=== PATIENT | male | born 1960 | race Caucasian/White ===

== ENCOUNTER 2017-10-21 18:17 | Emergency (ER) | payer MEDICAID ==
[2017-10-21 18:35] VITALS: TEMP 97.5
--- NOTE | 2017-10-21 20:01 | EDPHY ---
H & P Time Seen by Provider: 10/21/17 19:30 HPI/ROS: CHIEF COMPLAINT: Aura of seizure HISTORY OF PRESENT ILLNESS: 57-year-old male with alcoholism presents with an aura of seizure. Just prior to arrival, he felt like he might have a seizure. Currently, he feels better and the aura of seizure has resolved. He has been drinking heavily today. He has a history of alcohol withdrawal seizures and has had multiple seizures in the past. He has had a recent URI and has a lingering cough. He denies fever. No chest pain, vomiting, abdominal pain, diarrhea, or other associated symptoms. REVIEW OF SYSTEMS: A 10 point review of systems was performed and is negative with the exception of the elements mentioned in the history of present illness. Past Medical/Surgical History: History of DVT/PE Palpitations ETOH abuse with withdrawal seizures Social History: Homeless. staying in assisted living in [place], so he is here to visit her. Current daily smoker. Heavy alcohol use. Smoking Status: Current every day smoker Physical Exam: General Appearance: Alert, pleasant, speech is normal and not slurred Eyes: Pupils equal and round, no conjunctival pallor or injection ENT, Mouth: Mucous membranes moist Neck: Normal inspection Respiratory: Normal respiratory rate, few end-expiratory wheezes Cardiovascular: Regular rate and rhythm Gastrointestinal: Abdomen is soft and non-tender Neurological: A&O, nonfocal exam, no tremor Skin: Warm and dry, no rash Extremities: Nontender, no pedal edema Psychiatric: Mood and affect normal Constitutional: Initial Vital Signs Temperature (C) 36.4 C 10/21/17 18:32 Heart Rate 92 10/21/17 18:32 Respiratory Rate 15 10/21/17 18:32 Blood Pressure 136/84 H 10/21/17 18:32 O2 Sat (%) 97 10/21/17 18:32 O2 Delivery Mode Room Air Allergies/Adverse Reactions: No Known Allergies Allergy (Unverified 10/07/14 08:44) Home Medications: Medication Instructions Recorded NK [No Known Home Meds] 10/21/17 Medical Decision Making ED Course/Re-evaluation: 57 y/o male with history of alcohol withdrawal seizures presents with a sensation of imminent seizure, now resolved, and a productive cough. Plan to administer 1mg PO Ativan and DuoNeb treatment for symptom relief. There is no evidence of pneumonia on exam or by history, so chest x-ray was not ordered. He would like to go to the [facility]. Patient feels better. Plan to d/c to [facility] in good condition with Librium and Albuterol inhaler. Follow up and return precautions discussed. He is comfortable with this plan. - Data Points Medications Given: Discontinued Medications Albuterol Sulfate (Proventil Inh Prepack) 1 mdi TAKEHOME EDNOW ONE Stop: 10/21/17 20:04 Last Admin: 10/21/17 20:11 Dose: 1 mdi Albuterol/Ipratropium (Duoneb) 3 ml IH EDNOW ONE Stop: 10/21/17 20:03 Last Admin: 10/21/17 20:12 Dose: 3 ml Chlordiazepoxide (Librium 25 Mg Prepack#6) 1 btl TAKEHOME EDNOW ONE Stop: 10/21/17 20:04 Last Admin: 10/21/17 20:10 Dose: 1 btl Lorazepam (Ativan) 1 mg PO EDNOW ONE Stop: 10/21/17 20:04 Last Admin: 10/21/17 20:10 Dose: 1 mg Departure - Departure Disposition: Home, Routine, Self-Care Clinical Impression: Bronchospasm with bronchitis, acute Alcohol intoxication Qualifiers: Complication of substance-induced condition: uncomplicated Qualified Code(s): F10.920 - Alcohol use, unspecified with intoxication, uncomplicated Condition: Good Instructions: Chlordiazepoxide (By mouth), Albuterol (By breathing), Alcohol Intoxication (ED), Bronchospasm (ED) Additional Instructions: 1. Use Librium 1 tablet every 6 hours as needed for alcohol withdrawal. 2. Use your Albuterol inhaler as prescribed 2 puffs three times per day as needed for shortness of breath. 3. Return to the emergency department for fever, chest pain, worsening shortness of breath, seizures, or other worsening of condition. 4. Follow up with a primary care provider for further evaluation. Referrals: [facility] Detox 24 Hours [Outside] - As per Instructions [facility],. [Clinic] - As per Instructions Report Scribed for: Rhonda Bustillo Report Scribed by: Valencia Mata Date of Report: 10/21/17 Time of Report: 20:01 Physician Review and Approval Statement: 10/21/17 20:01 Portions of this note were transcribed by a dental assistant medical assistant. I personally performed a history, physical exam, medical decision making, and confirmed accuracy of information the transcribed note.
[2017-10-21] MEDS ORDERED: IPRATROPIUM/ALBUTEROL 3 ML DEYVIAL IH ONE (20:02)
[2017-10-21] MEDS ORDERED: LORazepam 1 MG TAB PO ONE (20:03)
[2017-10-21] MEDS ORDERED: CHLORDIAZEPOXIDE 25MG PREPK#6 BTL TAKEHOME ONE (20:03)
[2017-10-21] MEDS ORDERED: ALBUTEROL INH PREPACK MDI TAKEHOME ONE (20:03)
[2017-10-21 20:40] VITALS: BP 109/66; PULSE 94; RESP 18; O2SAT 95
== END 2017-10-21 20:44 | disposition home or self-care (01) ==
LOC: EDUNIT#
DX: J20.9 Acute bronchitis, unspecified (principal); F10.920 Alcohol use, unspecified with intoxication, uncomplicated; F17.200 Nicotine dependence, unspecified, uncomplicated

== ENCOUNTER 2017-11-21 15:13 | Emergency (ER) | payer MEDICAID ==
--- NOTE | 2017-11-21 15:22 | EDPHY ---
H & P Time Seen by Provider: 11/21/17 15:21 HPI/ROS: CHIEF COMPLAINT: Shortness of breath HISTORY OF PRESENT ILLNESS: This patient is a homeless 57 y/o male with history of COPD complaining of shortness of breath. He has run out of his albuterol inhaler. He is a current smoker. He currently feels mildly short of breath. Additionally, he has a pruritic rash over his body which has been ongoing for several months. The rash began after he slept in wood chips one night. He has been evaluated twice in the past for this, and tried to treat it with a topical cream without relief. He had not noted any bugs on his skin or in his clothing or bedding. He denies fever, chest pain, vomiting, diarrhea, urinary complaints or other associated symptoms. REVIEW OF SYSTEMS: A 10 point review of systems was performed and is negative with the exception of the elements mentioned in the history of present illness. Past Medical/Surgical History: COPD. History of DVT and PE. Palpitations. History of ETOH abuse with withdrawal seizures. Social History: Current daily smoker. Homeless. Stays in [place]. Smoking Status: Current every day smoker Physical Exam: General Appearance: Alert, pleasant Eyes: Pupils equal and round, no conjunctival pallor or injection ENT, Mouth: Mucous membranes moist Neck: Normal inspection Respiratory: Lungs are clear to auscultation. No wheezing. Cardiovascular: Regular rate and rhythm Gastrointestinal: Abdomen is soft and non-tender Neurological: A&O, nonfocal exam Skin: Numerous excoriations on skin over any areas within reach of his hands. No rash. Warm and dry. Extremities: Nontender, no pedal edema Psychiatric: Mood and affect normal Constitutional: Initial Vital Signs Temperature (C) 36.6 C 11/21/17 15:39 Heart Rate 95 11/21/17 15:39 Respiratory Rate 18 11/21/17 15:39 Blood Pressure 95/61 L 11/21/17 15:39 O2 Sat (%) 93 11/21/17 15:39 O2 Delivery Mode Room Air Allergies/Adverse Reactions: No Known Allergies Allergy (Unverified 10/07/14 08:44) Home Medications: Medication Instructions Recorded diphenhydrAMINE [Benadryl 25 MG 25 mg PO TID PRN #20 tab 11/21/17 (*)] predniSONE 1 tab PO DAILY #15 tab 11/21/17 Medical Decision Making ED Course/Re-evaluation: 57 y/o male presents with shortness of breath and generalized pruritus. On exam , I note no rash but there are numerous excoriations across his back and extremities from scratching. Lungs are clear to auscultation, no wheezing. Given diffuse pruritus, without a rash, I will look for underlying causes for pruritis, such as hypercalcemia or hyperbilirubinemia. I discussed washing all of his clothes and bedding to remove or reduce the amount of any irritant that may be present. Recommended [facility] for medication refills for albuterol and Benadryl. He states he is aware of this option, but that "it's a long walk from where I stay". Plan for consult with protective services social worker. Plan for laboratory studies including CBC, chemistries, liver panel as the patient has no obvious external cause for his itching. Lungs are clear to auscultation and oxygen saturation is normal. No evidence of COPD exacerbation. I will give him a prescription for an albuterol inhaler. Laboratory studies reviewed and are relatively normal. Plan to discharge home in good condition with prescription for Albuterol, Benadryl, and Prednisone. Follow up and return precautions discussed. He is comfortable with this plan. Differential Diagnosis: Differential diagnosis includes does not limited to scabies, bedbugs, urticaria , anaphylaxis, cellulitis - Data Points Laboratory Results: Laboratory Results 11/21/17 16:05 11/21/17 16:05 11/21/17 11/21/17 16:05 16:05 WBC 6.99 10^3/uL 10^3/uL (3.80-9.50) RBC 3.37 10^6/uL L 10^6/uL (4.40-6.38) Hgb 11.8 g/dL L g/dL (13.7-17.5) Hct 34.7 % L % (40.0-51.0) MCV 103.0 fL H fL (81.5-99.8) MCH 35.0 pg H pg (27.9-34.1) MCHC 34.0 g/dL g/dL (32.4-36.7) RDW 12.0 % % (11.5-15.2) Plt Count 97 10^3/uL L 10^3/uL (150-400) MPV 9.4 fL fL (8.7-11.7) Neut % (Auto) 65.5 % % (39.3-74.2) Lymph % (Auto) 18.0 % % (15.0-45.0) [place] % (Auto) 7.0 % % (4.5-13.0) Eos % (Auto) 8.4 % H % (0.6-7.6) Baso % (Auto) 0.7 % % (0.3-1.7) Nucleat RBC Rel Count 0.0 % % (0.0-0.2) Absolute Neuts (auto) 4.57 10^3/uL 10^3/uL (1.70-6.50) Absolute Lymphs (auto) 1.26 10^3/uL 10^3/uL (1.00-3.00) Absolute Monos (auto) 0.49 10^3/uL 10^3/uL (0.30-0.80) Absolute Eos (auto) 0.59 10^3/uL H 10^3/uL (0.03-0.40) Absolute Basos (auto) 0.05 10^3/uL 10^3/uL (0.02-0.10) Absolute Nucleated RBC 0.00 10^3/uL 10^3/uL (0-0.01) Immature Gran % 0.4 % % (0.0-1.1) Immature Gran # 0.03 10^3/uL 10^3/uL (0.00-0.10) Sodium 144 mEq/L mEq/L (135-145) Potassium 3.8 mEq/L mEq/L (3.5-5.2) Chloride 105 mEq/L mEq/L (97-110) Carbon Dioxide 21 mEq/l L mEq/l (22-31) Anion Gap 18 mEq/L H mEq/L (8-16) BUN 17 mg/dL mg/dL (7-23) Creatinine 0.9 mg/dL mg/dL (0.7-1.3) Estimated GFR > 60 Glucose 98 mg/dL mg/dL (70-100) Calcium 8.1 mg/dL L mg/dL (8.5-10.4) Total Bilirubin 1.1 mg/dL mg/dL (0.1-1.4) Conjugated Bilirubin 0.4 mg/dL mg/dL (0.0-0.5) Unconjugated Bilirubin 0.7 mg/dL mg/dL (0.0-1.1) AST 37 IU/L IU/L (17-59) ALT 28 IU/L IU/L (21-72) Alkaline Phosphatase 38 IU/L IU/L (38-126) Total Protein 6.0 g/dL L g/dL (6.3-8.2) Albumin 3.2 g/dL L g/dL (3.5-5.0) Medications Given: Discontinued Medications Albuterol Sulfate (Proventil Inh Prepack) 1 mdi TAKEHOME EDNOW ONE Stop: 11/21/17 15:56 Last Admin: 11/21/17 17:16 Dose: 1 mdi Diphenhydramine HCl (Benadryl) 25 mg PO EDNOW ONE Stop: 11/21/17 15:55 Last Admin: 11/21/17 16:02 Dose: 25 mg Prednisone (Prednisone) 60 mg PO EDNOW ONE Stop: 11/21/17 15:55 Last Admin: 11/21/17 16:02 Dose: 60 mg Departure - Departure Disposition: Home, Routine, Self-Care Clinical Impression: Generalized pruritus COPD (chronic obstructive pulmonary disease) Qualifiers: COPD type: unspecified COPD Qualified Code(s): J44.9 - Chronic obstructive pulmonary disease, unspecified Condition: Good Instructions: Albuterol (By breathing), Urticaria (ED), COPD (Chronic Obstructive Pulmonary Disease) (ED) Additional Instructions: 1. Take Benadryl and Prednisone as prescribed for relief of itching. 2. Use your Albuterol inhaler as prescribed, 2 puffs every 6 hours as needed for wheezing. 3. Follow up at the [facility] for reevaluation and for future prescription refills. 4. Return to the emergency department for fever, chest pain, shortness of breath , or other worsening of condition. The [facility] has walk-in appointments for the homeless at the following days/locations. No appointment is needed. Tuesday 8-10am @ [facility] 11AM-1PM @ [facility] Tuesday 8-10:30AM @ [facility] Tuesday 8-10 AM @ [facility] 2-4PM @ [facility] Tuesday 8-10AM @ [facility] Referrals: [facility],. [Clinic] - As per Instructions Prescriptions: diphenhydrAMINE [Benadryl 25 MG (*)] 25 mg PO TID PRN #20 tab PRN Reason: itchiness predniSONE 1 tab PO DAILY #15 tab Report Scribed for: Rhonda Bustillo Report Scribed by: Valencia Mata Date of Report: 11/21/17 Time of Report: 15:33 Physician Review and Approval Statement: 11/21/17 15:33 Portions of this note were transcribed by a medical record librarian. I personally performed a history, physical exam, medical decision making, and confirmed accuracy of information the transcribed note.
[2017-11-21 15:44] VITALS: TEMP 97.9; O2SAT 93
[2017-11-21] MEDS ORDERED: predniSONE 20 MG TAB PO ONE (15:54)
[2017-11-21] MEDS ORDERED: diphenhydrAMINE 25 MG CAP PO ONE (15:54)
[2017-11-21] MEDS ORDERED: ALBUTEROL INH PREPACK MDI TAKEHOME ONE (15:55)
[2017-11-21 16:16] LABS: PLATELET COUNT 97 10^3/uL (150-400)
[2017-11-21 17:20] VITALS: BP 105/68; PULSE 82; RESP 16
== END 2017-11-21 17:28 | disposition home or self-care (01) ==
LOC: EDUNIT#
DX: J44.9 Chronic obstructive pulmonary disease, unspecified (principal); L29.9 Pruritus, unspecified; F17.200 Nicotine dependence, unspecified, uncomplicated
CPT/HCPCS: J7512